=== PATIENT | male | born 1980 | race Caucasian/White ===

== ENCOUNTER 2016-10-30 12:17 | Emergency (ER) | payer MEDICAID, OTHER ==
[~2016-10-30] VITALS: Ht 177.8 cm; Wt 77.0 kg
[~2016-10-30 12:17] MED LIST: DICL75TA PO; VIST25CA PO
[2016-10-30 12:20] VITALS: BP 132/88; PULSE 70; RESP 16; TEMP 97.8; O2SAT 98
[2016-10-30] MEDS ORDERED: TRAZ100T4 PO (12:40)
[2016-10-30] MEDS ORDERED: LORazepam 2 MG TAB PO ONE (13:00)
--- NOTE | 2016-10-30 13:26 | PD ---
HPI . "I'm nervous systems all out of whack" Chief Complaint: Anxiety Time Seen by Provider: 12:39 Travel History International Travel<30 days: No Contact w/Intl Traveler<30days: No Traveled to known affect area: No History of Present Illness HPI This patient presents complaining that he suffers from chronic anxiety and chronic pain. 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 He states that his thyroid gland operates it 6 times normal. He would like to be evaluated by a psychiatrist. PFSH Past Medical History ADD: Yes Bipolar Disorder: Yes Diabetes: No Diminished Hearing: Yes ([place]IGHT [place]) Headaches: Yes Tetanus Vaccination: Unknown Influenza Vaccination: Yes Past Surgical History Tonsillectomy: Yes Social History Alcohol Use: No Tobacco Use: Yes (1/2PPD) Substance Use: Yes (MARIJUANA ) Allergies-Medications (Allergen,Severity, Reaction): Coded Allergies: No Known Allergies (Unverified , 10/30/16) Reported Meds & Prescriptions Reported Meds & Active Scripts Active Vistaril (Hydroxyzine Pamoate) 25 Mg Cap 25 Mg PO Q8HR PRN Reported Trazodone (Trazodone HCl) 100 Mg Tab 100 Mg PO HS Review of Systems Except as stated in HPI: all other systems reviewed are Neg General / Constitutional: No: Fever, Chills Musculoskeletal: Positive: Myalgias Psychiatric: Positive: Anxiety, Disorder of Thought, Mood Disorder Physical Exam Narrative GENERAL: Patient has a very flat affect. He was initially tremulous. SKIN: Warm and dry. HEAD: Atraumatic. Normocephalic. EYES: Pupils equal and round. ENT: No nasal bleeding or discharge. Mucous membranes pink and moist. NECK: Trachea midline. CARDIOVASCULAR: Regular rate and rhythm. RESPIRATORY: No accessory muscle use. GASTROINTESTINAL: Abdomen soft, non-tender, nondistended. MUSCULOSKELETAL: No obvious deformities. No edema. NEUROLOGICAL: Awake and alert. No obvious cranial nerve deficits. Motor grossly within normal limits. Normal speech. PSYCHIATRIC: He seems to have a flat affect. He has flight of ideas. Data Data Last Documented VS Vital Signs Date Time Temp Pulse Resp B/P Pulse Ox O2 Delivery O2 Flow Rate FiO2 10/30/16 12:35 68 16 10/30/16 12:20 97.8 132/88 98 Room Air Orders Lorazepam (Ativan) (10/30/16 13:00) Complete Blood Count With Diff (10/30/16 13:20) Comprehensive Metabolic Panel (10/30/16 13:20) Thyroid Stimulating Hormone (10/30/16 13:20) Drug Screen, Random Urine (10/30/16 13:20) Alcohol (Ethanol) (10/30/16 13:20) Psych Screen (10/30/16 13:20) Labs Laboratory Tests Test 10/30/16 13:30 White Blood Count 8.0 TH/MM3 Red Blood Count 4.89 MIL/MM3 Hemoglobin 15.5 GM/DL Hematocrit 43.5 % Mean Corpuscular Volume 88.9 FL Mean Corpuscular Hemoglobin 31.6 PG Mean Corpuscular Hemoglobin 35.6 % Concent Red Cell Distribution Width 12.4 % Platelet Count 216 TH/MM3 Mean Platelet Volume 7.9 FL Neutrophils (%) (Auto) 62.6 % Lymphocytes (%) (Auto) 26.7 % Monocytes (%) (Auto) 9.2 % Eosinophils (%) (Auto) 0.8 % Basophils (%) (Auto) 0.7 % Neutrophils # (Auto) 5.0 TH/MM3 Lymphocytes # (Auto) 2.1 TH/MM3 Monocytes # (Auto) 0.7 TH/MM3 Eosinophils # (Auto) 0.1 TH/MM3 Basophils # (Auto) 0.1 TH/MM3 CBC Comment DIFF FINAL Differential Comment Sodium Level 139 MEQ/L Potassium Level 4.4 MEQ/L Chloride Level 105 MEQ/L Carbon Dioxide Level 31.2 MEQ/L Anion Gap 3 MEQ/L Blood Urea Nitrogen 9 MG/DL Creatinine 0.94 MG/DL Estimat Glomerular Filtration 91 ML/MIN Rate Random Glucose 85 MG/DL Calcium Level 8.9 MG/DL Total Bilirubin 0.4 MG/DL Aspartate Amino Transf 33 U/L (AST/SGOT) Alanine Aminotransferase 85 U/L (ALT/SGPT) Alkaline Phosphatase 86 U/L Total Protein 7.2 GM/DL Albumin 4.0 GM/DL Thyroid Stimulating Hormone 2.830 uIU/ML 3rd Gen Ethyl Alcohol Level LESS THAN 3 MG/DL MDM Medical Decision Making Medical Screen Exam Complete: Yes Emergency Medical Condition: Yes Medical Record Reviewed: Yes Differential Diagnosis Differential diagnosis includes but is not limited to substance abuse, or disorder, schizophrenia, attention seeking behavior, anxiety/depression. Narrative Course Patient presents requesting evaluation by psychiatry because his "nervous system is out of whack. 3 PM The patient is medically clear for psychiatric evaluation. Diagnosis Primary Impression: Anxiety Additional Impression: Chronic pain Qualified Code: G89.4 - Chronic pain syndrome Condition: Stable Faviola Wagner MD Oct 30, 2016 13:25
[2016-10-30 13:49] LABS: BASOPHIL # 0.1 TH/MM3 (0-0.2); BASOPHIL % 0.7 % (0.0-2.0); EOSINOPHIL # 0.1 TH/MM3 (0-0.4); EOSINOPHIL % 0.8 % (0.0-4.0); HEMATOCRIT 43.5 % (39.0-51.0); HEMO FLAGS DIFF FINAL; LYMPH % 26.7 % (9.0-44.0); LYMPHOCYTE # 2.1 TH/MM3 (1.0-4.8); MEAN CELL VOLUME 88.9 FL (80.0-100.0); MEAN CORPUSCULAR HEMOGLOBIN 31.6 PG (27.0-34.0); MEAN CORPUSCULAR HGB CONC 35.6 % (32.0-36.0); MONO % 9.2 % (0.0-8.0); NEUT % 62.6 % (16.0-70.0); PLATELET COUNT 216 TH/MM3 (150-450); RED BLOOD COUNT 4.89 MIL/MM3 (4.50-5.90); RED CELL DISTRIBUTION WIDTH 12.4 % (11.6-17.2)
[2016-10-30 14:27] LABS: ALT (GPT) 85 U/L (12-78); ANION GAP 3 MEQ/L (5-15); AST (GOT) 33 U/L (15-37); BICARBONATE 31.2 MEQ/L (21.0-32.0); BLOOD UREA NITROGEN 9 MG/DL (7-18); CHLORIDE 105 MEQ/L (98-107); GLOMERULAR FILTRATION RATE 91 ML/MIN (>89); POTASSIUM 4.4 MEQ/L (3.5-5.1); SODIUM (NA) 139 MEQ/L (136-145)
[2016-10-30 14:36] LABS: ALKALINE PHOSPHATASE 86 U/L (45-117); TOTAL BILIRUBIN ADULT 0.4 MG/DL (0.2-1.0)
== END 2016-10-30 16:16 | disposition home or self-care (01) ==
LOC: NEPA 12:17
DX: F41.9 Anxiety disorder, unspecified (principal); G89.4 Chronic pain syndrome; F17.200 Nicotine dependence, unspecified, uncomplicated
CPT/HCPCS: 80053; 80320; 84443; 85025; 99283

== ENCOUNTER 2017-06-19 12:53 | Emergency (ER) | payer MEDICAID ==
[~2017-06-19 12:53] MED LIST changes: -DICL75TA PO; +TRAZ100T4 PO
[2017-06-19 12:54] VITALS: BP 138/92; PULSE 104; RESP 24; TEMP 97.7; O2SAT 100
--- NOTE | 2017-06-19 13:06 | PD ---
Physical Exam Date Seen by Provider: Jun 19, 2017 Time Seen by Provider: 13:02 Narrative Pt is a 37 year old male presenting to the ED for evaluation of a possible allergic reaction. Pt states his body is burning. Pt had invega injection this morning and symptoms started about 1-2 hours after the injection. Pt has had these injections in the past wiht no reactions. Pt states he is hearing voices, pt had been off of the med for a few months. Usually slightly groggy after the injection. Girlfriend states she got him to go back on the medication. Per her report had been exhibiting psychological symptoms prior to the injection and she believes this maybe psychological. VSS, awaiting bed placement. Data Data Last Documented VS Vital Signs Date Time Temp Pulse Resp B/P (MAP) Pulse Ox O2 Delivery O2 Flow Rate FiO2 06/19/17 12:54 97.7 104 24 138/92 (107) 100 MDM Supervised Visit with TIA: Hanna Barraza Jun 19, 2017 13:06
--- NOTE | 2017-06-19 13:28 | PD ---
HPI Chief Complaint: Allergic/Adverse Reaction Time Seen by Provider: 13:13 Travel History International Travel<30 days: No Contact w/Intl Traveler<30days: No Traveled to known affect area: No History of Present Illness HPI This patient has history of schizophrenia. He has been hearing voices and seeing things for couple of days. He denies suicidal thoughts or depression. Today he received an intramuscular injection of his schizophrenic medication which she gets monthly. He's had it multiple times before without any difficulty. He also took his usual 50 mg hydroxyzine. He denies any other alcohol or drugs or medications. He has some vague myalgias and total body burning sensation. Severity is moderate. No alleviating factors. PFSH Past Medical History ADD: Yes Bipolar Disorder: Yes Diabetes: No Diminished Hearing: Yes ([place]) Headaches: Yes Past Surgical History Tonsillectomy: Yes Social History Alcohol Use: No Tobacco Use: Yes (1/2PPD) Substance Use: Yes (MARIJUANA ) Allergies-Medications (Allergen,Severity, Reaction): Coded Allergies: No Known Allergies (Unverified , 10/30/16) Reported Meds & Prescriptions Reported Meds & Active Scripts Active Vistaril (Hydroxyzine Pamoate) 25 Mg Cap 25 Mg PO Q8HR PRN Reported Trazodone (Trazodone HCl) 100 Mg Tab 100 Mg PO HS Review of Systems General / Constitutional: No: Fever Eyes: No: Visual changes HENT: No: Headaches Cardiovascular: No: Chest Pain or Discomfort Respiratory: No: Shortness of Breath Gastrointestinal: No: Abdominal Pain Genitourinary: No: Dysuria Musculoskeletal: Positive: Myalgias, Pain Skin: No Rash Neurologic: No: Weakness Psychiatric: Positive: Disorder of Thought, No: Depression Endocrine: No: Polydipsia Hematologic/Lymphatic: No: Easy Bruising Physical Exam Narrative GENERAL: Well-nourished, well-developed patient in no apparent distress. SKIN: Focused skin assessment reveals no rash and nodules. Skin is Warm and dry. HEAD: Atraumatic. Normocephalic. EYES: Pupils equal and round. No scleral icterus. No injection or drainage. ENT: No nasal bleeding or discharge. Mucous membranes pink and moist. NECK: Trachea midline. No JVD. CARDIOVASCULAR: Regular rate and rhythm. No murmur appreciated. RESPIRATORY: No accessory muscle use. Clear to auscultation. Breath sounds equal bilaterally. GASTROINTESTINAL: Abdomen soft, non-tender, nondistended. Hepatic and splenic margins not palpable. MUSCULOSKELETAL: No obvious deformities. No clubbing. No cyanosis. No edema. NEUROLOGICAL: Awake but seems lethargic. No obvious cranial nerve deficits. Motor grossly within normal limits. Normal speech. PSYCHIATRIC: Appropriate mood and flat affect; insight and judgment reduced. Data Data Last Documented VS Vital Signs Date Time Temp Pulse Resp B/P (MAP) Pulse Ox O2 Delivery O2 Flow Rate FiO2 06/19/17 12:54 97.7 104 24 138/92 (107) 100 Orders Orders Complete Blood Count With Diff (06/19/17 13:22) Basic Metabolic Panel (Bmp) (06/19/17 13:22) Iv Access Insert/Monitor (06/19/17 13:22) Psych Screen (06/19/17 13:22) Drug Screen, Random Urine (06/19/17 13:22) Alcohol (Ethanol) (06/19/17 13:22) Labs Laboratory Tests Test 06/19/17 13:30 06/19/17 13:35 White Blood Count 7.2 TH/MM3 Red Blood Count 5.11 MIL/MM3 Hemoglobin 15.8 GM/DL Hematocrit 45.3 % Mean Corpuscular Volume 88.6 FL Mean Corpuscular Hemoglobin 30.9 PG Mean Corpuscular Hemoglobin Concent 34.8 % Red Cell Distribution Width 12.7 % Platelet Count 230 TH/MM3 Mean Platelet Volume 8.7 FL Neutrophils (%) (Auto) 58.2 % Lymphocytes (%) (Auto) 27.8 % Monocytes (%) (Auto) 7.5 % Eosinophils (%) (Auto) 2.8 % Basophils (%) (Auto) 3.7 % Neutrophils # (Auto) 4.2 TH/MM3 Lymphocytes # (Auto) 2.0 TH/MM3 Monocytes # (Auto) 0.5 TH/MM3 Eosinophils # (Auto) 0.2 TH/MM3 Basophils # (Auto) 0.3 TH/MM3 CBC Comment DIFF FINAL Differential Comment Blood Urea Nitrogen 9 MG/DL Creatinine 1.10 MG/DL Random Glucose 90 MG/DL Calcium Level 9.1 MG/DL Sodium Level 141 MEQ/L Potassium Level 3.9 MEQ/L Chloride Level 109 MEQ/L Carbon Dioxide Level 23.4 MEQ/L Anion Gap 9 MEQ/L Estimat Glomerular Filtration Rate 76 ML/MIN Ethyl Alcohol Level LESS THAN 3 MG/DL Urine Opiates Screen NEG Urine Barbiturates Screen NEG Urine Amphetamines Screen NEG Urine Benzodiazepines Screen NEG Urine Cocaine Screen NEG Urine Cannabinoids Screen NEG MDM Medical Decision Making Medical Screen Exam Complete: Yes Emergency Medical Condition: Yes Medical Record Reviewed: Yes Differential Diagnosis Exacerbation of schizophrenia, medication side effect, overmedication Narrative Course I have reviewed the patient's electronic medical record. I've ordered psychiatric evaluation, patient request this. He may be having a schizophrenic exacerbation. I don't see any evidence of allergic reaction. He does have some sedating medication on board. IV placed CBC is normal Metabolic profile is normal Alcohol is negative Drug screen is clean I think he is having an exacerbation of schizophrenia. His workup is normal and his vitals are normal and his exam is benign. Patient is medically stable. I'm awaiting psychiatric evaluation. Patient will be discharged to follow up his primary physician and outpatient psychiatric provider unless psychiatric screening here uncovers something potentially dangerous. Diagnosis Primary Impression: Schizophrenia, acute Additional Impression: Medication side effect Qualified Codes: T88.7XXA - Unspecified adverse effect of drug or medicament, initial encounter Eric Quinteros MD Jun 19, 2017 13:28
[2017-06-19 13:50] LABS: AUTOMATED NEUTROPHIL # 4.2 TH/MM3 (1.8-7.7); BASOPHIL # 0.3 TH/MM3 (0-0.2); BASOPHIL % 3.7 % (0.0-2.0); EOSINOPHIL # 0.2 TH/MM3 (0-0.4); EOSINOPHIL % 2.8 % (0.0-4.0); HEMATOCRIT 45.3 % (39.0-51.0); HEMO FLAGS DIFF FINAL; LYMPH % 27.8 % (9.0-44.0); MEAN CELL VOLUME 88.6 FL (80.0-100.0); MEAN CORPUSCULAR HEMOGLOBIN 30.9 PG (27.0-34.0); MEAN CORPUSCULAR HGB CONC 34.8 % (32.0-36.0); MONO % 7.5 % (0.0-8.0); NEUT % 58.2 % (16.0-70.0); PLATELET COUNT 230 TH/MM3 (150-450); RED BLOOD COUNT 5.11 MIL/MM3 (4.50-5.90); RED CELL DISTRIBUTION WIDTH 12.7 % (11.6-17.2); WHITE BLOOD COUNT 7.2 TH/MM3 (4.0-11.0)
[2017-06-19 14:11] LABS: ANION GAP 9 MEQ/L (5-15); BICARBONATE 23.4 MEQ/L (21.0-32.0); BLOOD UREA NITROGEN 9 MG/DL (7-18); CHLORIDE 109 MEQ/L (98-107); GLOMERULAR FILTRATION RATE 76 ML/MIN (>89); POTASSIUM 3.9 MEQ/L (3.5-5.1); SODIUM (NA) 141 MEQ/L (136-145)
[2017-06-19 14:13] LABS: ALCOHOL LESS THAN 3 MG/DL (0-5)
[2017-06-19 16:30] VITALS: BP 128/81; PULSE 67; RESP 18; O2SAT 98
[2017-06-19 18:51] VITALS: BP 135/66; PULSE 92; RESP 18; O2SAT 100
--- NOTE | 2017-06-19 20:38 | PD ---
Physical Exam Time Seen by Provider: 20:35 Narrative Please refer to previous provider's documentation for details surrounding the patient's current visit Data Data Last Documented VS Vital Signs Date Time Temp Pulse Resp B/P (MAP) Pulse Ox O2 Delivery O2 Flow Rate FiO2 06/19/17 18:51 92 18 135/66 (89) 100 Room Air 06/19/17 12:54 97.7 Orders Orders Complete Blood Count With Diff (06/19/17 13:22) Basic Metabolic Panel (Bmp) (06/19/17 13:22) Iv Access Insert/Monitor (06/19/17 13:22) Psych Screen (06/19/17 13:22) Drug Screen, Random Urine (06/19/17 13:22) Alcohol (Ethanol) (06/19/17 13:22) Diet Regular Basic (06/19/17 Dinner) Labs Laboratory Tests Test 06/19/17 13:30 06/19/17 13:35 White Blood Count 7.2 TH/MM3 Red Blood Count 5.11 MIL/MM3 Hemoglobin 15.8 GM/DL Hematocrit 45.3 % Mean Corpuscular Volume 88.6 FL Mean Corpuscular Hemoglobin 30.9 PG Mean Corpuscular Hemoglobin Concent 34.8 % Red Cell Distribution Width 12.7 % Platelet Count 230 TH/MM3 Mean Platelet Volume 8.7 FL Neutrophils (%) (Auto) 58.2 % Lymphocytes (%) (Auto) 27.8 % Monocytes (%) (Auto) 7.5 % Eosinophils (%) (Auto) 2.8 % Basophils (%) (Auto) 3.7 % Neutrophils # (Auto) 4.2 TH/MM3 Lymphocytes # (Auto) 2.0 TH/MM3 Monocytes # (Auto) 0.5 TH/MM3 Eosinophils # (Auto) 0.2 TH/MM3 Basophils # (Auto) 0.3 TH/MM3 CBC Comment DIFF FINAL Differential Comment Blood Urea Nitrogen 9 MG/DL Creatinine 1.10 MG/DL Random Glucose 90 MG/DL Calcium Level 9.1 MG/DL Sodium Level 141 MEQ/L Potassium Level 3.9 MEQ/L Chloride Level 109 MEQ/L Carbon Dioxide Level 23.4 MEQ/L Anion Gap 9 MEQ/L Estimat Glomerular Filtration Rate 76 ML/MIN Ethyl Alcohol Level LESS THAN 3 MG/DL Urine Opiates Screen NEG Urine Barbiturates Screen NEG Urine Amphetamines Screen NEG Urine Benzodiazepines Screen NEG Urine Cocaine Screen NEG Urine Cannabinoids Screen NEG MDM Medical Record Reviewed: Yes Supervised Visit with TIA: No Narrative Course Psychiatric screen is complete and patient has been monitored. He does not meet inpatient psyche criteria and would like to leave. I have discussed the patient with jammie Hung RN and reviewed the notes. Pt will be discharged at this time. Diagnosis Primary Impression: Schizophrenia, acute Additional Impression: Medication side effect Qualified Codes: T88.7XXA - Unspecified adverse effect of drug or medicament, initial encounter Referrals: [facility] (Out patient) Patient Instructions: General Instructions, Schizophrenia (ED) Additional Instruction: Follow up with your primary care provider Follow up with your psychiatrist Return immediately with any acute worsening of symptoms Med/Other Pt SpecificInfo: No Change to Meds Disposition: 01 DISCHARGE HOME Condition: Stable Diana Bergeron Jun 19, 2017 20:38
== END 2017-06-19 20:47 | disposition home or self-care (01) ==
LOC: NEPD 12:53 → NEPJ 20:47
DX: F20.9 Schizophrenia, unspecified (principal); T88.7XXA Unspecified adverse effect of drug or medicament, initial encounter; F17.200 Nicotine dependence, unspecified, uncomplicated; Z79.899 Other long term (current) drug therapy
CPT/HCPCS: 80048; 80307; 85025; 99284

== ENCOUNTER 2018-03-23 06:31 | Emergency (ER) | payer MEDICAID, OTHER ==
[~2018-03-23] VITALS: Ht 185.4 cm; Wt 70.0 kg
[2018-03-23 06:46] VITALS: BP 123/71; PULSE 58; RESP 20; TEMP 98; O2SAT 98
[2018-03-23 07:26] VITALS: BP 116/72; PULSE 56; RESP 18; O2SAT 98
[2018-03-23] MEDS ORDERED: KETOROLAC TROMETHAMINE 30 MG/ML (IVP) VIAL IV PUSH ONE (07:30)
[2018-03-23] MEDS ORDERED: SODIUM CHLOR 0.9% 1000 ML INJ 1,000 ML IV ONE (07:30)
[2018-03-23 08:27] LABS: AUTOMATED NEUTROPHIL # 4.1 TH/MM3 (1.8-7.7); BASOPHIL % 0.3 % (0.0-2.0); EOSINOPHIL # 0.2 TH/MM3 (0-0.4); HEMATOCRIT 42.7 % (39.0-51.0); HEMOGLOBIN 14.7 GM/DL (13.0-17.0); LYMPH % 37.3 % (9.0-44.0); MEAN CELL VOLUME 87.8 FL (80.0-100.0); MEAN CORPUSCULAR HEMOGLOBIN 30.1 PG (27.0-34.0); MEAN CORPUSCULAR HGB CONC 34.3 % (32.0-36.0); MEAN PLATELET VOLUME 8.4 FL (7.0-11.0); MONO % 10.1 % (0.0-8.0); MONOCYTE # 0.8 TH/MM3 (0-0.9); NEUT % 50.3 % (16.0-70.0); PLATELET COUNT 226 TH/MM3 (150-450); RED BLOOD COUNT 4.86 MIL/MM3 (4.50-5.90); RED CELL DISTRIBUTION WIDTH 12.4 % (11.6-17.2); WHITE BLOOD COUNT 8.1 TH/MM3 (4.0-11.0)
[2018-03-23 08:45] LABS: BICARBONATE 22.3 MEQ/L (21.0-32.0); CALCIUM 8.3 MG/DL (8.5-10.1); CREATININE 0.87 MG/DL (0.60-1.30)
[2018-03-23 08:47] LABS: BILIRUBIN, URINE NEG (NEG); BLOOD, URINE NEG (NEG); CALCIUM OXALATE CRYSTALS,URINE OCC /hpf; GLUCOSE,URINE NEG (NEG); HYALINE CAST, URINE 2 /lpf (RARE); KETONE, URINE NEG (NEG); MUCUS URINE FEW /lpf (OCC); NITRITE,URINE NEG (NEG); PH, URINE 5.5 (5.0-8.5); URINE COLOR YELLOW (YELLW/STRAW); URINE LEUKOCYTE ESTERASE NEG (NEG)
[2018-03-23 09:21] VITALS: BP 118/62; PULSE 58; RESP 18; O2SAT 98
--- NOTE | 2018-03-23 09:44 | PD ---
HPI Chief Complaint: Abdominal Pain Time Seen by Provider: 07:19 Travel History International Travel<30 days: No Contact w/Intl Traveler<30days: No Traveled to known affect area: No History of Present Illness HPI This is a 37-year-old male with no significant past medical history, presents here today with complaints of left-sided hip pain. Patient reports pain over the superior portion of his left iliac crest. He denies any recent trauma. He does state that he has been hanging shingles. He reports that he may have pulled a muscle while laying shingles on a roof. The patient denies any abdominal pain. The patient does report some mild discomfort in his left flank. There is no dysuria, urgency, frequency. There is no dark colored urine. There is no previous history of kidney stones. PFSH Past Medical History ADD: Yes Bipolar Disorder: Yes Diabetes: No Diminished Hearing: Yes (SLIGHT [place]) Headaches: Yes Immunizations Current: Yes Tetanus Vaccination: Unknown Influenza Vaccination: Yes Past Surgical History Tonsillectomy: Yes Social History Alcohol Use: No Tobacco Use: Yes Substance Use: No (Denies) Allergies-Medications (Allergen,Severity, Reaction): Coded Allergies: No Known Allergies (Unverified Adverse Reaction, Unknown, 03/23/18) Reported Meds & Prescriptions Reported Meds & Active Scripts Active No Active Prescriptions or Reported Medications Review of Systems Except as stated in HPI: all other systems reviewed are Neg General / Constitutional: No: Fever, Chills HENT: No: Headaches, Neck Pain Cardiovascular: No: Chest Pain or Discomfort, Palpitations Respiratory: No: Cough, Shortness of Breath Gastrointestinal: No: Nausea, Vomiting, Abdominal Pain Genitourinary: No: Dysuria, Hematuria Musculoskeletal: Positive: Pain (Left iliac crest. Mild discomfort in his left lateral back.) Skin: No Rash, No Lesions Neurologic: No: Weakness, Dizziness, Headache Physical Exam Narrative GENERAL: Well developed well-nourished male in no acute respiratory distress. SKIN: Focused skin assessment warm/dry. HEAD: Atraumatic. Normocephalic. EYES: No scleral icterus. No injection or drainage. ENT: No nasal bleeding or discharge. Mucous membranes pink and moist. NECK: Trachea midline. Supple. CARDIOVASCULAR: Regular rate and rhythm. No murmur appreciated. RESPIRATORY: No accessory muscle use. Clear to auscultation. Breath sounds equal bilaterally. GASTROINTESTINAL: Abdomen soft, non-tender, nondistended. No guarding or rebound. Patient has a completely benign abdomen. MUSCULOSKELETAL: No obvious deformities. No clubbing. No cyanosis. No edema. On palpation of the patient's superior iliac crest, there is discomfort in the muscle just above. There is no redness, rash,. NEUROLOGICAL: Awake and alert. No obvious cranial nerve deficits. Motor grossly within normal limits. Normal speech. Data Data Last Documented VS Vital Signs Date Time Temp Pulse Resp B/P (MAP) Pulse Ox O2 Delivery O2 Flow Rate FiO2 03/23/18 10:49 66 16 112/79 (90) 99 03/23/18 09:21 Room Air 03/23/18 06:46 98.0 Orders Orders Complete Blood Count With Diff (03/23/18 07:19) Basic Metabolic Panel (Bmp) (03/23/18 07:19) Urinalysis - C+S If Indicated (03/23/18 07:19) Iv Access Insert/Monitor (03/23/18 07:19) Ecg Monitoring (03/23/18 07:19) Oximetry (03/23/18 07:19) Sodium Chlor 0.9% 1000 Ml Inj (Ns 1000 M (03/23/18 07:30) Ketorolac Inj (Toradol Inj) (03/23/18 07:30) Labs Laboratory Tests Test 03/23/18 07:30 03/23/18 08:15 White Blood Count 8.1 TH/MM3 Red Blood Count 4.86 MIL/MM3 Hemoglobin 14.7 GM/DL Hematocrit 42.7 % Mean Corpuscular Volume 87.8 FL Mean Corpuscular Hemoglobin 30.1 PG Mean Corpuscular Hemoglobin Concent 34.3 % Red Cell Distribution Width 12.4 % Platelet Count 226 TH/MM3 Mean Platelet Volume 8.4 FL Neutrophils (%) (Auto) 50.3 % Lymphocytes (%) (Auto) 37.3 % Monocytes (%) (Auto) 10.1 % Eosinophils (%) (Auto) 2.0 % Basophils (%) (Auto) 0.3 % Neutrophils # (Auto) 4.1 TH/MM3 Lymphocytes # (Auto) 3.0 TH/MM3 Monocytes # (Auto) 0.8 TH/MM3 Eosinophils # (Auto) 0.2 TH/MM3 Basophils # (Auto) 0.0 TH/MM3 CBC Comment DIFF FINAL Differential Comment Blood Urea Nitrogen 9 MG/DL Creatinine 0.87 MG/DL Random Glucose 81 MG/DL Calcium Level 8.3 MG/DL Sodium Level 143 MEQ/L Potassium Level 4.0 MEQ/L Chloride Level 110 MEQ/L Carbon Dioxide Level 22.3 MEQ/L Anion Gap 11 MEQ/L Estimat Glomerular Filtration Rate 99 ML/MIN Urine Color YELLOW Urine Turbidity CLEAR Urine pH 5.5 Urine Specific [place] 1.030 Urine Protein TRACE mg/dL Urine Glucose (UA) NEG mg/dL Urine Ketones NEG mg/dL Urine Occult Blood NEG Urine Nitrite NEG Urine Bilirubin NEG Urine Urobilinogen 2.0 MG/DL Urine Leukocyte Esterase NEG Urine RBC LESS THAN 1 /hpf Urine WBC LESS THAN 1 /hpf Urine Calcium Oxalate Crystals OCC /hpf Urine Hyaline Casts 2 /lpf Urine Mucus FEW /lpf Microscopic Urinalysis Comment CULT NOT INDICATED MDM Medical Decision Making Medical Screen Exam Complete: Yes Emergency Medical Condition: Yes Differential Diagnosis Muscular strain versus renal calculus versus contusion Narrative Course 37-year-old male presents today with left lateral supra iliac crest pain. 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 Patient has a completely soft and benign abdomen. Labs including urinalysis are within normal limits. The patient's been given Toradol IV 1 dose and reports it has improved his discomfort. He will be discharged with 4 days of Toradol. He is instructed to use moist heat. He is also instructed to return if feeling worse. Diagnosis Primary Impression: Left lateral superior iliac crest pain. Additional Instructions: Avoid heavy activity 1 week. Moist heat 2-3 times daily. Return if feeling worse. Med/Other Pt SpecificInfo: Prescription(s) given Scripts Ketorolac (Ketorolac) 10 Mg Tab 10 MG PO TID Y for Pain Management for 4 Days, TAB 0 Refills Prov: Elliott Escobar MD 03/23/18 Disposition: 01 DISCHARGE HOME Condition: Stable Elliott Escobar MD Mar 23, 2018 09:44
[2018-03-23 10:49] VITALS: BP 112/79
[2018-03-23] MEDS ORDERED: KETO10 PO (11:35)
== END 2018-03-23 11:36 | disposition home or self-care (01) ==
LOC: NEPE 06:31
DX: M54.9 Dorsalgia, unspecified (principal); F98.8 Other specified behavioral and emotional disorders with onset usually occurring in childhood and adolescence; F31.9 Bipolar disorder, unspecified; Z72.0 Tobacco use
CPT/HCPCS: 80048; 81001; 85025; 96361; 96374; 99284; J1885; J7030